=== PATIENT | female | born 1985 | race American Indian/Alaskan Native ===

== ENCOUNTER 2016-07-23 22:06 | Inpatient (IN) | payer MEDICAID ==
[2016-07-23] MEDS ORDERED: ZOFRAN IV PRN (23:39)
[2016-07-23] MEDS ORDERED: SUBLIMAZE IV PRN (23:39)
[2016-07-23] MEDS ORDERED: BRETHINE SUB-Q PRN (23:39)
[2016-07-23] MEDS ORDERED: MINERAL OIL PO PRN (23:39)
[2016-07-23] MEDS ORDERED: ePHEDrine SULFATE IV PRN (23:39)
[2016-07-23] MEDS ORDERED: BRETHINE IVP PRN (23:39)
[2016-07-23] MEDS ORDERED: PITOCin/NS 20 UNIT/1000ML DRIP 1,000 ML IV SCH (23:45)
--- NOTE | 2016-07-23 23:56 | History and Physical Report ---
History of Present Illness Date of examination: 07/23/16 Date of admission: 07/23/16 22:07 Chief complaint: water broke History of present illness: Pt is nonclinic stating she had care with [facility] but has not been in over a month. Provider senior fire protection engineer for the practice was called and stated that pt would be ER walk in patient. Pt presents with c/o ROM. Pt examined and noted to be grossly ruptured. Clear fluids noted. Sono today places pt at 34 3/7 wks while lmp given places pt at 36 5/7 weeks. Pt an have refused antibx for unknown gbs, betamthazoe, and IV pain meds at this time. I have taken several risk d/w with the patient and her the risk of poor outcome for +GBS including but not limited to sepsis and . Both have expressed understanding and stat that for adventist reasons they do not want intervention. The also refuse any other labor augmentation at this time. Again I d/w them that if the rupture of membranes are prolonged, this could lead to again infection, sepsis, and poor maternal or outcomes. Both expressed understanding requesting a rapid strep test. I advised that it would likely take 2 days to obtain the results and she will likely deliver prior to this time. Both expressed understanding and the request testing. Past History Past Medical History: no pertinent history Past Surgical History: no surgical history Family/Genetic History: none - Obstetrical History Expected Date of Delivery: 08/31/16 Actual Gestation: 34 Week(s) 4 Day(s) : 6 Para: 5 Number of Living Children: 5 Medications and Allergies Allergies Allergy/AdvReac Type Severity Reaction Status Date / Time amoxicillin Allergy Swelling Unverified 09/12/14 12:10 peanut Allergy Itching Unverified 09/12/14 12:10 Home Medications Medication Instructions Recorded Confirmed Last Taken Type Azithromycin [Zithromax TAB] 500 mg PO QDAY #3 tablet 02/13/16 Unknown Rx Active Meds: Active Medications Ephedrine Sulfate (Ephedrine Sulfate) 10 mg IV Q2M PRN PRN Reason: Hypotension Stop: 07/23/16 23:44 Fentanyl (Sublimaze) 100 mcg IV Q2H PRN PRN Reason: Labor Pain Clindamycin HCl (Cleocin 900 Mg/50 Ml) 50 mls @ 100 mls/hr IV Q8HR BALTAZAR PRN Reason: Protocol Lactated Ringer's (Lactated Ringers) 1,000 mls @ 125 mls/hr IV DIRECT BALTAZAR Oxytocin/Sodium Chloride (Pitocin/Ns 20 Unit/1000ml Drip) 1,000 mls @ 125 mls/ hr IV DIRECT BALTAZAR Mineral Oil (Mineral Oil) 30 ml PO QHS PRN PRN Reason: Constipation Ondansetron HCl (Zofran) 4 mg IV Q8H PRN PRN Reason: Nausea And Vomiting Terbutaline Sulfate (Brethine) 0.25 mg SUB-Q ONCE PRN PRN Reason: Hyperstimulation/Hypertonicity Stop: 07/23/16 23:40 Terbutaline Sulfate (Brethine) 0.25 mg IVP ONCE PRN PRN Reason: Hyperstimulation/Hypertonicity Stop: 07/23/16 23:40 Review of Systems All systems: negative - Vital Signs Vital signs: Vital Signs Pulse Pulse Ox 156 H 82 L 07/23/16 22:16 07/23/16 22:16 Temp Pulse Resp BP Pulse Ox 79 100 07/23/16 23:48 07/23/16 23:48 - Physical Exam Lungs: Positive: Normal air movement Abdomen: Positive: normal appearance, soft. Negative: distention, tenderness, guarding Genitourinary (Female): Positive: normal external genitalia, normal perenium Vulva: both: normal - Obstetrical FHR: category 2 (due to occassional variable and late decels) Cervical Dilatation: 6 Cervical Effacement Percentage: 75 station: -2 Uterine Contraction Pattern: Regular Uterine Contraction Intensity: Moderate Results Result Diagrams: 07/23/16 22:25 All other labs normal. Assessment and Plan - Patient Problems (1) 34 weeks gestation of Current Visit: Yes Status: Acute Plan to address problem: PT IS 36 5/7 BY HER LMP. STATES HE IS SURE THEY ARE CLOSER TO 37 WEEKS. I ADVISED THAT WITHOUT RECORDS I HAVE TO USE THE DATEING BY THE SONOGRAM PROVIDED WHICH IS C/W DATES IN THAT IT IS NOT MORE THAN 3 WKS DIFFERENCE. WILL CON'T EXPECTANT MANAGEMENT AT THIS TIME PATIENT AND ARE REFUSING INTERVENTIONS. (2) premature rupture of membranes Current Visit: Yes Status: Acute Plan to address problem: -admit - steroids-PT AND REFUSED TREATMENT AT THIS TIME -expectant management for now -gbs treatment-PT AND REFUSE ANITBX TREATMENT FOR UNKNOWN STATUS AT THIS TIME. I TOOK SEVERAL MINUTES DISCUSSING THIS WITH THE NURSING STAFF AT THE BEDSIDE. ALL QUESTIONS WERE ADDRESSED AND ANSWERED.
[2016-07-24] MEDS ORDERED: CELESTONE SOLUSPAN IM SCH
[2016-07-24 00:31] LABS: Hemoglobin 9.5 gm/dl (10.1-14.3); Mean Corpuscular HGB Conc 32 % (30-34); Mean Corpuscular Volume 81 fl (79-97); Platelet Count 320 K/mm3 (140-440); Red Blood Count 3.72 M/mm3 (3.65-5.03); Red Cell Distribution Width 19.4 % (13.2-15.2); White Blood Count 8.5 K/mm3 (4.5-11.0)
[2016-07-24 00:43] LABS: Mean Corpuscular Hemoglobin 26 pg (28-32)
[2016-07-24] MEDS: CLEOCIN 900 MG/50 mL 50 ML IV SCH ×2 (00:57→05:31)
[2016-07-24 01:12] LABS: HIV-1 Antigen p24 Non React (Non React); HIVR-1/2 Ab Non React (Non React)
--- NOTE | 2016-07-24 07:33 | Event Note ---
Date: 07/24/16 Recommendations made at this time to facilitate delivery via pitocin as she is ruptured and gbs status is unknown and has not had cervical change since 12am. I stressed that delivery is recommended for late (34-36.6wks) by ACOG. Pt did not sign the consent that states she refuses treatment for GBS but it is on the chart. Pt states that they would like to sign out AMA at this time. It was recommended that it would not be advisible at this time due to prematurity, SROM, risk of infection, or maternal poor outcome. Pt was given forms to sign. Pt was discussed with oncoming provider.
[2016-07-24] MEDS: LACTATED RINGERS 1,000 ML IV SCH ×2 (08:50→09:55)
[2016-07-24] MEDS ORDERED: PITOCin/NS 30 UNIT/500ML 500 ML IV SCH (09:00)
--- NOTE | 2016-07-24 11:04 | Progress Note ---
Addendum entered and electronically signed by LINDSAY NOGUEIRA CNM 12:13: Original Note: Assessment and Plan Patient and spouse have agreed to stay and for pitocin augmentation. Records received from [facility] where patient had 2 visits. EDC by LMP 08/16/16 on records making patient 36+5 weeks. no u/s noted on records so it is unsure if that date is correct. Labs are otherwise normal and have been scanned into her chart for review. Pit increase to 8mU and will be titrated for adequate ctx. Oral temp currently 97.3, FHT baseline is increased from 140's to 150's. PROM @ 2145, so we are at >12h. Will continue to monitor closely for s/s infection. - Patient Problems (1) premature rupture of membranes Diagnosis Date: 07/23/16 Current Visit: Yes Status: Acute Plan to address problem: 07/23/16 @ 2145, clear fluid augmentation of labor with pitocin (2) 36 weeks gestation of Current Visit: Yes Status: Acute Subjective - Subjective Date of service: 07/24/16 (E) Patient reports: loss of fluid, movement normal, contractions Objective - Vital Signs Vital Signs: Vital Signs - 12hr 07/23/16 07/23/16 07/23/16 22:53 22:58 23:03 Temperature Pulse Rate 84 101 H 73 Respiratory Rate Blood Pressure O2 Sat by Pulse 100 100 100 Oximetry 07/23/16 07/23/16 07/23/16 23:08 23:13 23:18 Temperature Pulse Rate 89 83 85 Respiratory Rate Blood Pressure O2 Sat by Pulse 100 100 100 Oximetry 07/23/16 07/23/16 07/23/16 23:23 23:28 23:33 Temperature Pulse Rate 77 73 86 Respiratory Rate Blood Pressure O2 Sat by Pulse 100 100 100 Oximetry 07/23/16 07/23/16 07/23/16 23:38 23:43 23:48 Temperature Pulse Rate 91 H 78 79 Respiratory Rate Blood Pressure O2 Sat by Pulse 100 100 100 Oximetry 07/23/16 07/23/16 07/24/16 23:53 23:58 00:03 Temperature Pulse Rate 82 81 80 Respiratory Rate Blood Pressure O2 Sat by Pulse 100 100 100 Oximetry 07/24/16 07/24/16 07/24/16 00:08 00:13 00:17 Temperature Pulse Rate 76 93 H 91 H Respiratory Rate Blood Pressure 97/57 O2 Sat by Pulse 100 100 Oximetry 07/24/16 07/24/16 07/24/16 00:18 00:21 00:23 Temperature 99.1 F Pulse Rate 79 78 Respiratory 18 Rate Blood Pressure O2 Sat by Pulse 100 100 Oximetry 07/24/16 07/24/16 07/24/16 00:28 00:33 00:38 Temperature Pulse Rate 92 H 95 H 83 Respiratory Rate Blood Pressure O2 Sat by Pulse 100 100 100 Oximetry 07/24/16 07/24/16 07/24/16 00:43 00:48 00:53 Temperature Pulse Rate 100 H 86 105 H Respiratory Rate Blood Pressure O2 Sat by Pulse 100 100 100 Oximetry 07/24/16 07/24/16 07/24/16 00:58 01:03 01:08 Temperature Pulse Rate 98 H 94 H 77 Respiratory Rate Blood Pressure O2 Sat by Pulse 100 100 100 Oximetry 07/24/16 07/24/16 07/24/16 01:13 01:18 01:23 Temperature Pulse Rate 89 82 94 H Respiratory Rate Blood Pressure O2 Sat by Pulse 100 100 100 Oximetry 07/24/16 07/24/16 07/24/16 01:25 01:28 01:33 Temperature 99.6 F Pulse Rate 81 124 H Respiratory 20 Rate Blood Pressure O2 Sat by Pulse 100 100 Oximetry 07/24/16 07/24/16 07/24/16 01:38 01:43 01:48 Temperature Pulse Rate 78 94 H 94 H Respiratory Rate Blood Pressure O2 Sat by Pulse 100 100 100 Oximetry 07/24/16 07/24/16 07/24/16 01:53 01:58 02:03 Temperature Pulse Rate 79 80 73 Respiratory Rate Blood Pressure O2 Sat by Pulse 100 100 100 Oximetry 07/24/16 07/24/16 07/24/16 02:08 02:13 02:18 Temperature Pulse Rate 69 77 103 H Respiratory Rate Blood Pressure O2 Sat by Pulse 100 100 99 Oximetry 07/24/16 07/24/16 07/24/16 02:38 02:43 02:48 Temperature Pulse Rate 93 H 81 94 H Respiratory Rate Blood Pressure O2 Sat by Pulse 100 100 100 Oximetry 07/24/16 07/24/16 07/24/16 02:49 02:53 02:57 Temperature 98.9 F Pulse Rate 82 86 Respiratory 20 Rate Blood Pressure 98/56 O2 Sat by Pulse 100 Oximetry 07/24/16 07/24/16 07/24/16 02:58 03:03 03:08 Temperature Pulse Rate 110 H 82 98 H Respiratory Rate Blood Pressure O2 Sat by Pulse 100 100 100 Oximetry 07/24/16 07/24/16 07/24/16 03:13 03:18 03:23 Temperature Pulse Rate 72 77 83 Respiratory Rate Blood Pressure O2 Sat by Pulse 100 100 100 Oximetry 07/24/16 07/24/16 07/24/16 03:28 03:37 03:42 Temperature Pulse Rate 85 99 H 87 Respiratory Rate Blood Pressure O2 Sat by Pulse 100 100 100 Oximetry 07/24/16 07/24/16 07/24/16 03:47 03:52 03:57 Temperature Pulse Rate 95 H 81 85 Respiratory Rate Blood Pressure O2 Sat by Pulse 100 100 99 Oximetry 07/24/16 07/24/16 07/24/16 04:02 04:07 04:12 Temperature Pulse Rate 88 83 78 Respiratory Rate Blood Pressure O2 Sat by Pulse 100 100 99 Oximetry 07/24/16 07/24/16 07/24/16 04:17 04:22 04:23 Temperature Pulse Rate 98 H 108 H 121 H Respiratory Rate Blood Pressure 92/54 O2 Sat by Pulse 99 100 Oximetry 07/24/16 07/24/16 07/24/16 04:24 04:27 04:32 Temperature 98.5 F Pulse Rate 125 H 101 H Respiratory 18 Rate Blood Pressure O2 Sat by Pulse 99 100 Oximetry 07/24/16 07/24/16 07/24/16 04:37 04:42 04:47 Temperature Pulse Rate 111 H 79 80 Respiratory Rate Blood Pressure O2 Sat by Pulse 100 100 100 Oximetry 07/24/16 07/24/16 07/24/16 04:52 04:57 05:10 Temperature Pulse Rate 80 89 92 H Respiratory Rate Blood Pressure O2 Sat by Pulse 100 100 100 Oximetry 07/24/16 07/24/16 07/24/16 05:15 05:20 05:25 Temperature Pulse Rate 97 H 110 H 83 Respiratory Rate Blood Pressure O2 Sat by Pulse 100 100 100 Oximetry 07/24/16 07/24/16 07/24/16 05:30 05:35 05:40 Temperature Pulse Rate 95 H 86 89 Respiratory Rate Blood Pressure O2 Sat by Pulse 100 100 100 Oximetry 07/24/16 07/24/16 07/24/16 05:45 05:50 05:53 Temperature 98.5 F Pulse Rate 94 H 112 H Respiratory Rate Blood Pressure O2 Sat by Pulse 100 100 Oximetry 07/24/16 07/24/16 07/24/16 05:55 06:00 06:09 Temperature Pulse Rate 91 H 78 88 Respiratory Rate Blood Pressure O2 Sat by Pulse 100 100 100 Oximetry 07/24/16 07/24/16 07/24/16 06:14 06:19 06:24 Temperature Pulse Rate 89 89 98 H Respiratory Rate Blood Pressure O2 Sat by Pulse 100 100 100 Oximetry 07/24/16 07/24/16 07/24/16 06:29 06:34 06:39 Temperature Pulse Rate 77 87 80 Respiratory Rate Blood Pressure O2 Sat by Pulse 100 100 100 Oximetry 07/24/16 07/24/16 07/24/16 06:44 06:49 06:54 Temperature Pulse Rate 84 91 H 92 H Respiratory Rate Blood Pressure O2 Sat by Pulse 100 100 100 Oximetry 07/24/16 07/24/16 07/24/16 06:59 07:04 07:09 Temperature Pulse Rate 89 75 86 Respiratory Rate Blood Pressure O2 Sat by Pulse 100 100 100 Oximetry 07/24/16 07/24/16 07/24/16 07:14 07:20 07:28 Temperature Pulse Rate 84 94 H 75 Respiratory Rate Blood Pressure O2 Sat by Pulse 100 100 100 Oximetry 07/24/16 07/24/16 07/24/16 07:33 07:38 07:43 Temperature Pulse Rate 85 72 85 Respiratory Rate Blood Pressure O2 Sat by Pulse 100 100 100 Oximetry 07/24/16 07/24/16 07/24/16 07:48 07:53 07:58 Temperature Pulse Rate 76 89 100 H Respiratory Rate Blood Pressure 102/61 O2 Sat by Pulse 100 100 100 Oximetry 07/24/16 07/24/16 07/24/16 08:03 08:08 08:13 Temperature Pulse Rate 71 68 112 H Respiratory Rate Blood Pressure O2 Sat by Pulse 100 100 100 Oximetry 07/24/16 07/24/16 07/24/16 08:18 08:23 08:28 Temperature Pulse Rate 85 85 91 H Respiratory Rate Blood Pressure O2 Sat by Pulse 100 100 100 Oximetry 07/24/16 07/24/16 07/24/16 08:42 08:47 08:52 Temperature Pulse Rate 69 77 76 Respiratory Rate Blood Pressure O2 Sat by Pulse 100 100 100 Oximetry 07/24/16 07/24/16 07/24/16 08:57 09:02 09:07 Temperature Pulse Rate 79 80 86 Respiratory Rate Blood Pressure O2 Sat by Pulse 100 100 100 Oximetry 07/24/16 07/24/16 07/24/16 09:12 09:17 09:22 Temperature Pulse Rate 72 69 71 Respiratory Rate Blood Pressure O2 Sat by Pulse 100 100 100 Oximetry 07/24/16 07/24/16 07/24/16 09:27 09:38 09:43 Temperature Pulse Rate 68 93 H 83 Respiratory Rate Blood Pressure O2 Sat by Pulse 100 100 100 Oximetry 07/24/16 07/24/16 07/24/16 09:48 09:53 09:58 Temperature Pulse Rate 85 93 H 98 H Respiratory Rate Blood Pressure O2 Sat by Pulse 100 100 100 Oximetry 07/24/16 07/24/16 07/24/16 10:03 10:08 10:13 Temperature Pulse Rate 92 H 88 73 Respiratory Rate Blood Pressure O2 Sat by Pulse 100 100 100 Oximetry 07/24/16 07/24/16 07/24/16 10:18 10:23 10:28 Temperature Pulse Rate 94 H 74 84 Respiratory Rate Blood Pressure O2 Sat by Pulse 100 100 100 Oximetry 07/24/16 07/24/16 07/24/16 10:33 10:38 10:43 Temperature Pulse Rate 87 78 72 Respiratory Rate Blood Pressure O2 Sat by Pulse 100 100 100 Oximetry 07/24/16 10:48 Temperature Pulse Rate 78 Respiratory Rate Blood Pressure O2 Sat by Pulse 100 Oximetry - Exam Breasts: normal Cardiovascular: Regular rate Lungs: Clear to auscultation Abdomen: Present: normal appearance, soft, normal bowel sounds Vulva: both: normal Uterus: Present: normal FHR: category 2 FHR comments: baseline 150's with early decels Uterine Contraction Monitor Mode: External Cervical Dilatation: 6.5 (vertex, no BOW, clear fluid) Cervical Effacement Percentage: 80 station: -2 Uterine Contraction Frequency (min): 3-7 Uterine Contraction Duration: 60-80 Uterine Contraction Pattern: Irregular Uterine Tone Measurement Phase: Contraction Uterine Contraction Intensity: Mild Extremities: normal Deep Tendon Reflex Grade: Normal +2 - Labs Labs: Abnormal Labs 07/23/16 22:25 Hgb 9.5 L Hct 30.0 L MCH 26 L RDW 19.4 H Laboratory Results - last 24 hr 07/23/16 07/23/16 07/23/16 22:25 22:25 23:30 WBC 8.5 RBC 3.72 Hgb 9.5 L Hct 30.0 L MCV 81 MCH 26 L MCHC 32 RDW 19.4 H Plt Count 320 Hep Bs Antigen Hepatitis C Antibody Non-reactive HIV 1&2 Antibody Rapid HIV P24 Antigen Blood Type O POSITIVE Antibody Screen Negative 07/23/16 07/24/16 23:30 01:55 WBC RBC Hgb Hct MCV MCH MCHC RDW Plt Count Hep Bs Antigen Non-reactive Hepatitis C Antibody HIV 1&2 Antibody Rapid Non react HIV P24 Antigen Non react Blood Type Antibody Screen
--- NOTE | 2016-07-24 11:14 | Ultrasound Report ---
OB ULTRASOUND: TECHNIQUE: Transabdominal ultrasound with Doppler interrogation. Gestation: betancur Position: cephalic Amniotic Fluid: Decreased (< 7 cm) SATHIHS = 1.8 cm Placenta: fundal Placental Grade: II Heart Rate: 158 BPM Cervical length: 2.4 cm (Normal > 3 cm) NEUROANATOMY VISUALIZED: Choroid Plexus Cisterna Magnum Cerebellum ANATOMY VISUALIZED: Stomach Kidneys Bladder Diaphragm Heart SPINE VISUALIZED: Longitudinal Transverse The following are not demonstrated due to maternal body habitus or lie: lateral ventricle, 4 chamber heart, 3 vessel cord, abd. cord insert. Advanced gestational age. BPD: 8.67 cm = 35 w 0 d HC: 32.67 cm = 37 w 0 d AC: 27.90 cm = 32 w 0 d FL: 6.53 cm = 33 w 5 d HC/AC Ratio: 1.17 Cephalic Index: 76.9 Estimated Weight: 2149 grams LMP: 11-09-15 Clinical age = 36 w 5 d EDC: 08-15-16 US Gest. Age = 34 w 3 d EDC: 08-31-16 COMMENT: There is incomplete visualization of the lateral ventricles, 4 chamber heart, 3 vessel cord and abdominal cord insertion.
--- NOTE | 2016-07-24 12:08 | Procedure Note ---
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 Cord blood collected. Placenta del intact and complete. no lacerations, fundus firm, bleeding scant. NICU Assessed d/t questionable gestational age, reports infant appears to be 36+ weeks gestation, not 34. EBL 200, Apgars 8/9, wt 5#2oz. mother , both doing well. - A at 1 minute: 8 at 5 minutes: 9 Infant Gender: Female (5#2oz)
--- NOTE | 2016-07-24 15:01 | Admit Criteria Form ---
Admission Criteria Documentation: OBSTETRIC AND GYNECOLOGIC DISEASE GRG Clinical Indications for Admission to Inpatient Care (Place 'X' for any and all applicable criteria): Hospital admission is needed for appropriate care of the patient because of ANY ONE of the following (1)(2)(3): [ ]I. Hemodynamic instability, as indicated by ALL of the following (1)(2)(3)( 4)(5): [ ]a) Vital signs or other findings not as expected for chronic patient condition or baseline [ ]b) Instability indicated by ANY ONE of the following: [ ]i) Hypotension [ ]ii) Symptomatic tachycardia unresponsive to treatment (eg, analgesia, fluids, sedation as indicated) [ ]iii) Inadequate perfusion indicated by ANY ONE of the following: [ ]A. Lactic acidosis (greater than 2 mmol/ L) [ ]B. New abnormal capillary refill ( greater than 3 seconds) [ ]C. Reduced urine output [ ]D. New altered mental status [ ]iv) Orthostatic vital sign changes unresponsive to treatment (eg, fluids) [ ]v) Multiple IV fluid boluses required to maintain adequate blood pressure or perfusion [ ]vi) IV inotropic or vasopressor medication required to maintain adequate blood pressure or perfusion [ ]II. Obstetric infection requiring hospitalization indicated by ANY ONE of the following(13)(14): [ ]a) Chorioamnionitis [ ]b) Endometritis (except mild endometritis) [ ]c) Pelvic abscess [ ]d) Peritonitis [ ]e) Septic pelvic thrombophlebitis [ ]III. Amniotic fluid or pulmonary embolism(4)(5)(6) [ ]IV. Suspected peritonitis or ectopic requiring monitoring beyond scope of 24 hours or observation care(7)(8) [ ]V. compromise requiring hospitalization indicated by ALL of the following(9)(10): [ ]a) compromise indicated by ANY ONE of the following(11): [ ]i) Abnormal heart rate monitoring [ ]ii) Abnormal contraction stress test [ ]iii) Abnormal biophysical profile [ ]iv) Abnormal Doppler flow in vessels (ie, Doppler velocimetry) (12) [ ]b) Persistence of compromise indicators during evaluation and observation monitoring [ ]. Ovarian hyperstimulation syndrome requiring hospitalization[A] indicated by ALL of the following(15): [ ]a) Recent ovarian stimulation with gonadotropins, or evidence on ultrasound of spontaneous emergence of large number of ovarian follicles [ ]b) Evidence of severe ovarian hyperstimulation syndrome indicated by ANY ONE of the following: [ ]i) Abdominal pain unresponsive to oral therapy [ ]ii) Acute respiratory distress syndrome [ ]iii) Electrolyte imbalance ( eg, hyponatremia, hyperkalemia) [ ]iv) Elevated liver enzymes [ ]v) Evidence of thromboembolism [ ]vi) Hemoconcentration (hematocrit greater than 45 % (0.45)) [ ]vii) Inability to maintain oral intake adequate to prevent hemoconcentration [ ]viii) Marked hypotension from baseline (eg, SBP 20 mmHg below patients usual pressure) [ ]ix) Oliguria or anuria [ ]x) Ovarian torsion [ ]xi) Pleural or pericardial effusion on x-ray or echocardiogram [ ]xii) Rapid increase in serum creatinine to greater than 1.2 mg/dL (106 micromoles/L) or creatinine clearance less than 50 mL/min/1.73m2 (0.84 mL/ sec/1.73m2) [ ]xiii) Ruptured ovarian cyst with hemorrhage [ ]xiv) Severe abdominal pain or peritoneal signs [ ]xv) Tense ascites that cannot be managed with paracentesis in outpatient setting [ ]VII.Pelvic infection requiring hospitalization indicated by ANY ONE of the following (16): [ ]a) Outpatient treatment has failed or is not appropriate (eg, inpatient monitoring required) [ ]b) Pelvic abscess [ ]c) Surgical emergency cannot be excluded (eg, rigid abdomen) [ ]d) Vomiting precluding outpatient and observation care management VIII. loss complications requiring inpatient medical treatment indicated by ANY ONE of the following (4)(7)(9): [ ]a) Fever [ ]b) Peritonitis [ ]c) Sepsis [ ]d) Severe abdominal pain [ ]IX. or patient requiring monitoring for severe heart failure, pulmonary disease, or other comorbid condition (eg, peripartum cardiomyopathy) (4)(17) [ ]X. patient with rupture of membranes requiring hospitalization indicated by ANY ONE of the following: [ ]a) Chorioamnionitis, cloudy amniotic fluid, or other evidence of infection [ ]b) compromise or other need for monitoring (11) [ ]c) Gestation longer than 23 weeks and ANY ONE of the following: [ ]i) Abnormal (noncephalic) presentation [ ]ii) Inadequate home environment (eg, home too far from hospital, unable to rapidly return to hospital) [ ]d) Temperature greater than 100.4 degrees F (38 degrees C)( oral) []e) Threatened labor requiring monitoring beyond scope (eg, over 24 hours) of observation Care [ ] XI. complications, including severe lacerations, infections, or retained placenta (19) [ ] XII.Uterine bleeding with high-risk features indicated by ANY ONE of the following (4): [ ]a) Active major hemorrhage (eg, hemorrhage) [ ]b) Coagulopathy with active bleeding [ ]c) Gestational trophoblastic disease (eg, molar ) (20 ) [ ]d) (longer than 23 weeks) and ANY ONE of the following: [ ]i) Pain [ ]ii) Placental abruption, known or suspected [ ]iii) Placenta accrete, known or suspected(21) [ ]iv) Placenta previa, known or suspected [ ]v) Vasa previa [ ]e) Severe anemia [X ]XIII. Obstetric or Gynecologic Disease, condition or symptom for which ANY ONE of the following: [ X]a) Emergency and observation care have failed or are not considered appropriate ( Also use General Criteria: Observation Care Criteria as appropriate) [ ]b) Presence of a General Admission Criteria or Pediatric General Admission Criteria The original [facility] Narrative content created by [facility] [employer] has been revised. The portions of the content which have been revised are identified through the use of italic text or in bold, and [facility] has neither reviewed nor approved the modified material.All other unmodified content is copyright [facility]. Please see references footnoted in the original [facility] edition 2016 Admission Criteria Met: Yes
[2016-07-24] MEDS ORDERED: MILK OF MAGNESIA PO PRN (16:22)
[2016-07-24] MEDS ORDERED: MOTRIN PO SCH (16:22)
[2016-07-24] MEDS ORDERED: DULCOLAX PR PRN (16:22)
[2016-07-24] MEDS ORDERED: SODIUM CHLORIDE FLUSH SYRINGE 10 ML IV NR (16:22)
[2016-07-24] MEDS ORDERED: BENADRYL PO PRN (16:22)
[2016-07-24] MEDS ORDERED: LANSINOH TP PRN (16:22)
[2016-07-24] MEDS ORDERED: NORCO 5/325 PO PRN (16:22)
[2016-07-24] MEDS ORDERED: PITOCin/NS 20 UNIT/1000ML DRIP 1,000 ML IV SCH (16:22)
[2016-07-24] MEDS ORDERED: PHENERGAN PO PRN (16:22)
[2016-07-24] MEDS ORDERED: DERMOPLAST TP PRN (16:22)
[2016-07-24] MEDS ORDERED: TYLENOL PO PRN (16:22)
[2016-07-24] MEDS ORDERED: TUCKS PAD TP PRN (16:22)
[2016-07-25 00:19] LABS: Hematocrit 27.1 % (30.3-42.9); Hemoglobin 8.4 gm/dl (10.1-14.3)
[2016-07-25] MEDS ORDERED: BOOSTRIX IM ONE (06:00)
--- NOTE | 2016-07-25 06:38 | Discharge Summary ---
Providers - Providers Date of Admission: 07/23/16 22:07 Date of discharge: 07/25/16 (pt requesting d/c today) Attending physician: ZAHIDA SMALLWOOD 07/24/16 16:22 Consult to Nutrition Services Aide [CONS] Routine Reason For Exam: assistance with , SNS Primary care physician: ZAHIDA SMALLWOOD Hospitalization Reason for admission: active labor, labor Delivery: Episiotomy: none Laceration: none Incision: normal Other procedures: none complications: none [place] baby: female Hospital course: uncomplicated vaginal delivery Pt requesting d/c if possible. Aware baby may need to stay Will postpone d/c if baby is not released VSS FF below umb Lochia small Perineum intact H&H 8.4/27.1 chronic anemia Pt stable s/p vag delivery P: d/c today with instruction Tomorrow if indicated RX motrin and iron RTO 4-6 weeks PP care. Condition at discharge: Good Disposition: DISCHARGED TO HOME OR SELFCARE - Discharge Diagnoses (1) Spontaneous vaginal delivery Status: Acute Comment: RTO 4-6 weeks for PP care. Plan - Provider Discharge Summary Activity: routine, no sex for 6 weeks, no heavy lifting 4 weeks, no strenuous exercise Diet: routine Instructions: routine Additional instructions: [] Smoking cessation referral if applicable(refer to patient education folder for contact #) [] Refer to [facility] Booklet Call your doctor immediately for: * Fever > 100.5 * Heavy vaginal bleeding ( >1 pad per hour) * Severe persistent headache * Shortness of breath * Reddened, hot, painful area to leg or breast * Drainage or odor from incision. * Keep incision clean and dry at all times and follow doctor's instructions regarding bathing/showering - Follow up plan Follow up: ZAHIDA SMALLWOOD MD [Primary Care Provider] - 08/24/16 (Congratulations! Please call [phone] to schedule your visit in 4 weeks. Take medication as prescribed. Call with concerns.)
[2016-07-25] MEDS ORDERED: PRENATAL VITAMIN PO SCH (10:00)
[2016-07-25 13:05] VITALS: BP 94/50
== END 2016-07-25 15:15 | disposition home or self-care (01) | DRG 775 ==
LOC: TRG 22:06 → LD 22:07 → OB 07-24 13:47
PROVIDERS: ADMIT Obstetrics & Gynecology; ATTEND Obstetrics & Gynecology
PROC: 10E0XZZ Delivery of Products of Conception, External Approach (ICD-10-PCS; principal; 2016-07-24)
DX: O60.14X0 Preterm labor third trimester with preterm delivery third trimester, not applicable or unspecified (principal); O99.02 Anemia complicating childbirth; D64.9 Anemia, unspecified; Z37.0 Single live birth; Z3A.36 36 weeks gestation of pregnancy; Z88.1 Allergy status to other antibiotic agents; Z91.010 Allergy to peanuts; O09.33 Supervision of pregnancy with insufficient antenatal care, third trimester
CPT/HCPCS: 36415; 76805; 85014; 85018; 85027; 86592; 86706; 86803; 86850; 86900; 86901; 87116; 87806; 99211; G0463; J2590; J7120